=== PATIENT | female | born 1985 | race Caucasian/White ===

== ENCOUNTER → 2020-11-25 | Outpatient (CLI) | payer BC ==
--- NOTE | 2020-11-25 10:21 | RAD ---
XR LUMBAR SPINE 2-3V History: Reason: LOW BACK PAIN, FALL FROM A COUPLE FEET WEDNESDAY / Spl. Instructions: / History: Technique: 3 views lumbar spine Comparison: None. Findings: Mild retrolisthesis L2 on L3. Slight grade 1 anterolisthesis L4 on L5. L4-5 degenerative disc changes . Normal vertebral body height. No acute fracture. Impression: 1. Multilevel lumbar spondylosis most prominent L4-L5. Electronically signed by: Simon Bazzi DO (11/25/2020 10:18 AM) [id number]
--- NOTE | 2020-11-25 17:24 | RAD ---
Thoracic spine 3 views. HISTORY: Mid back pain after recent fall 3 views were taken of the thoracic spine. There is mild scoliosis. There is no acute fracture. There is mild spurring at C5-6 in the cervical spine. IMPRESSION: 1. Mild scoliosis. 2. No acute thoracic fracture. Electronically signed by: Matti Lauren MD (11/25/2020 5:22 PM) [id number]
== END ==
LOC: LAB 09:56
PROVIDERS: ATTEND Internal Medicine
DX: M47.816 Spondylosis without myelopathy or radiculopathy, lumbar region (principal); M41.86 Other forms of scoliosis, lumbar region
CPT/HCPCS: 72072; 72100